=== PATIENT | male | born 1965 | race Caucasian/White ===

== ENCOUNTER 2022-05-26 22:13 | Emergency (ER) | payer BC, SELFPAY ==
[2022-05-26 22:20] VITALS: BP 186/100; PULSE 67; RESP 18; TEMP 36.8; O2SAT 99; BMI 26.1
--- NOTE | 2022-05-26 22:25 | DI.RAD.S_ITS ---
PROCEDURE: XR CHEST 1V INDICATIONS: chest pain TECHNIQUE: One view of the chest was acquired. COMPARISON: None. FINDINGS: Surgical changes and devices: None. Lungs and pleura: Lungs are clear. No pleural effusions or pneumothorax. Mediastinum: Mediastinal contours appear normal. Heart size is normal. Bones and chest wall: No suspicious bony lesions. Overlying soft tissues appear unremarkable. IMPRESSION: 1. No acute cardiopulmonary disease. Dictated by: Steve Cristobal M.D. on 05/26/2022 at 23:42 Approved by: Steve Cristobal M.D. on 05/26/2022 at 23:42
--- NOTE | 2022-05-26 22:27 | ED.CHESTPAIN ---
HPI - Chest Pain General Chief Complaint: Chest Pain Stated Complaint: lt arm pain, nausea, hx heart attack Time Seen by Provider: 05/26/22 22:25 History of Present Illness HPI narrative: 57-year-old male nonsmoker with history of coronary artery disease and what sounds like a VFib arrest with subsequent heart catheterization resulting in the placement of 3 stents in 2017 or 2018 in [place]. The patient states that he had a clean cath about 1-2 years ago and largely been in his normal state of health until earlier today when he developed 7/10 retrosternal chest pressure with radiation to his left arm and neck. He denies any obvious provocation, palliation of the symptoms and states that he has associated nausea and shortness of breath. He denies any dizziness or lightheadedness nor unexplained diaphoresis. He states that he frequently exercises heavily and has had no exercise intolerance or unexplained fatigue. He denies any recent injury. He states he recently traveled from [place] and flew in today. Denies any history of blood clot and has no lower extremity numbness, tingling or weakness Related Data Previous Rx's Medication Instructions Recorded nitroglycerin 0.4 mg sublingual 0.4 mg sublingual Q5-15M PRN chest 05/27/22 tablet pain #30 tabs Allergies Allergy/AdvReac Type Severity Reaction Status Date / Time No Known Drug Allergies Allergy Verified 05/26/22 23:07 Review of Systems Review of Systems Narrative: GENERAL: See HPI HEENT: Denies sinus pain, ear pain, sore throat, difficulty swallowing, dizziness. RESPIRATORY: Denies dyspnea, cough, wheezing, hemoptysis, sputum. CARDIOVASCULAR: See HPI GASTROINTESTINAL: Denies nausea, vomiting, abdominal pain, diarrhea, constipation, melena. : Denies dysuria, frequency, incontinence, hematuria, urinary retention. MUSCULOSKELETAL: denies weakness, joint pain, or bony pain SKIN: Denies rash, skin lesions, or other NEUROLOGIC: Denies weakness, headache, numbness, change in speech, confusion, seizures, incoordination. PSYCHIATRIC: No concerning psychosocial issues. 12 point review of systems is negative except for those stated above Patient History Social History Smoking Status: Never smoker Exam Narrative Exam Narrative: GENERAL: [57] year old patient appears stated age. Well-developed patient, in mild distress. HEAD: Atraumatic. Normocephalic. EYES: Pupils equal round and reactive. Extraocular motions intact. No scleral icterus. No injection or drainage. ENT: Nose without bleeding, purulent drainage. Throat without erythema, tonsillar hypertrophy or exudate. Airway patent. NECK: Trachea midline. Non tender CARDIOVASCULAR: Regular rate and rhythm without murmurs, gallops, or rubs. RESPIRATORY: Clear to auscultation. Breath sounds equal bilaterally. No wheezes, rales, or rhonchi. GASTROINTESTINAL: Abdomen soft, non-tender, nondistended. EXTREMITIES: No edema or joint tenderness. BACK: Nontender without deformity or crepitance. No flank tenderness. NEURO: AOx3. SKIN: No rash or erythema of visible areas Initial Vital Signs Initial Vital Signs: Vital Signs Temperature 98.2 F 05/26/22 22:20 Pulse Rate 67 05/26/22 22:20 Respiratory Rate 18 05/26/22 22:20 Blood Pressure 186/100 H 05/26/22 22:20 Pulse Oximetry 99 05/26/22 22:20 Oxygen Delivery Method 05/26/22 22:20 Scores HEART Score Heart Score history: Highly Suspicious Heart Score EKG: Normal Heart Score Age: 45-64 years old Heart Score risk factors: > 3 risk factors or hx of atherosclerotic disease Heart Score troponin: < or = to normal limit Heart Score Total: 5 Course Orders Ordered: ED Orders 05/26/22 22:25 XR chest 1V Stat 05/26/22 22:28 EKG-12 Lead Stat 05/26/22 22:30 Complete Blood Count AUTO DIFF Stat Comprehensive Metabolic Panel Stat D Dimer Stat Lipase Stat NT-proBNP (BNP-Adult 18+) Stat Prothrombin Time INR Stat Troponin & CK Cardiac Panel Stat 05/26/22 22:52 EKG-12 Lead Routine 05/26/22 23:13 EKG-12 Lead Routine 05/27/22 00:27 Troponin I Stat 05/27/22 00:55 Lipid Panel Urgent 05/27/22 00:56 Exercise treadmill NON NUC Urgent 05/27/22 00:57 EC echo doppler complete Urgent 05/27/22 00:58 Education, smoking cessation ONGOING 05/27/22 01:00 Magnesium Urgent Discontinued Medications Acetaminophen (Acetaminophen 325 Mg Tablet) 650 mg PO Q6HR PRN PRN Reason: Fever/Mild Pain (1-3) Aspirin (Aspirin 81 Mg Chew Tab) 324 mg PO NOW ONE Stop: 05/26/22 22:26 Last Admin: 05/26/22 22:51 Dose: 324 mg Documented By: AT Aspirin (Aspirin Ec 325 Mg Tablet) 325 mg PO DAILY [facility] Enoxaparin Sodium (Enoxaparin 40 Mg/0.4 Ml Syringe) 40 mg SUBCUT DAILY [facility] Sodium Chloride (Normal Saline 0.9%) 1,000 mls @ 150 mls/hr IV CONT DENNY Last Admin: 05/26/22 23:08 Dose: 150 mls/hr Documented By: AT Morphine Sulfate (Morphine 2 Mg/Ml Inj) 2 mg IV Q5MIN PRN PRN Reason: Chest Pain Nitroglycerin (Nitroglycerin 0.4 Mg Sl Tab) 0.4 mg SL [id number] PRN PRN Reason: Chest Pain Last Admin: 05/26/22 22:52 Dose: 0.4 mg Documented By: AT Nitroglycerin (Nitroglycerin 0.4 Mg Sl Tab) 0.4 mg SL [id number] PRN PRN Reason: Chest Pain Ondansetron HCl (Ondansetron 4 Mg/2 Ml Inj) 4 mg IV Q4HR PRN PRN Reason: Nausea And Vomiting Potassium Chloride (Potassium Chloride 20 Meq Tab) 20 meq PO NOW ONE Stop: 05/27/22 01:03 Vital Signs Vital signs: Vital Signs - 8 hr 05/26/22 22:50 05/26/22 22:50 05/26/22 22:57 Pulse Rate 68 81 Respiratory Rate Blood Pressure 155/89 H Pulse Oximetry 97 97 Oxygen Delivery Method 05/26/22 22:57 05/26/22 23:00 05/26/22 23:00 Pulse Rate 77 Respiratory Rate 15 Blood Pressure 137/74 120/71 Pulse Oximetry 96 Oxygen Delivery Method Room Air 05/26/22 23:30 05/26/22 23:30 05/27/22 00:00 Pulse Rate 60 Respiratory Rate 12 Blood Pressure 122/69 128/78 Pulse Oximetry 95 Oxygen Delivery Method 05/27/22 00:00 05/27/22 00:30 05/27/22 00:30 Pulse Rate 63 66 Respiratory Rate 16 33 H Blood Pressure 126/81 Pulse Oximetry 96 95 Oxygen Delivery Method 05/27/22 01:00 05/27/22 01:00 05/27/22 01:30 Pulse Rate 74 Respiratory Rate 23 Blood Pressure 135/89 160/91 H Pulse Oximetry 96 Oxygen Delivery Method 05/27/22 01:30 05/27/22 01:38 05/27/22 01:38 Pulse Rate 67 68 Respiratory Rate 24 16 Blood Pressure 147/85 H Pulse Oximetry 96 97 Oxygen Delivery Method MDM - Chest Pain Lab Data Result diagrams: 05/26/22 22:30 05/26/22 22:30 Labs: Lab Results 05/26/22 05/26/22 05/26/22 Range/Units 22:30 22:30 22:30 WBC 7.8 (4.5-11.0) X10^3/uL RBC 4.46 L (4.5-5.9) X10^6/uL Hgb 14.4 (13.5-17.5) g/dL Hct 40.7 L (41-53) % MCV 91.4 (80-100) fL MCH 32.2 (26-34) PG MCHC 35.3 (30-36) % RDW 13.0 (11.6-14.8) % Plt Count 213 (150-400) X10^3/uL Neut % (Auto) 53.8 (50-75) % Lymph % (Auto) 32.1 (25-40) % [place] % (Auto) 9.9 (3-14) % Eos % (Auto) 2.9 (2-4) % Baso % (Auto) 1.3 (0-2) % Neut # (Auto) 4200 (2691-1533) /uL Lymph # (Auto) 2500 (8928-1609) /uL [place] # (Auto) 800 (0-900) /uL Eos # (Auto) 200 (0-450) /uL Baso # (Auto) 100 (0-100) /uL PT 11.0 (10.1-12.7) SECONDS INR 1.0 (0.9-1.3) D-Dimer 282 (<500) ng/ml Sodium 139 (137-145) mmol/L Potassium 3.2 L (3.4-5.1) mmol/L Chloride 103 (98-107) mmol/L Carbon Dioxide 28 (22-32) mmol/L BUN 25 H (9-20) mg/dL Creatinine 1.11 (0.66-1.25) mg/dL Estimated GFR > 60 (>60) mL/min BUN/Creatinine Ratio 22.5 H (6-22) Glucose 114 H (70-100) mg/dL Calcium 8.7 (8.4-10.2) mg/dL Total Bilirubin 0.7 (0.2-1.3) mg/dL AST 25 (17-59) IU/L ALT 26 (<50) IU/L Alkaline Phosphatase 51 (38-126) U/L Total Creatine Kinase 53 L (55-170) U/L CK-MB (CK-2) TNP CK-MB (CK-2) Rel Index TNP Troponin I < 0.012 (0.01-0.034) ng/mL NT-Pro-B Natriuret Pep (<125) pg/mL Total Protein 6.7 (6.3-8.2) g/dL Albumin 4.0 (3.5-5.0) g/dL Globulin 2.7 (1.7-4.1) g/dL Albumin/Globulin Ratio 1.5 (1.0-2.8) Lipase 194 (23-300) U/L 05/26/22 05/27/22 Range/Units 22:30 00:27 WBC (4.5-11.0) X10^3/uL RBC (4.5-5.9) X10^6/uL Hgb (13.5-17.5) g/dL Hct (41-53) % MCV (80-100) fL MCH (26-34) PG MCHC (30-36) % RDW (11.6-14.8) % Plt Count (150-400) X10^3/uL Neut % (Auto) (50-75) % Lymph % (Auto) (25-40) % [place] % (Auto) (3-14) % Eos % (Auto) (2-4) % Baso % (Auto) (0-2) % Neut # (Auto) (5356-9643) /uL Lymph # (Auto) (5492-5410) /uL [place] # (Auto) (0-900) /uL Eos # (Auto) (0-450) /uL Baso # (Auto) (0-100) /uL PT (10.1-12.7) SECONDS INR (0.9-1.3) D-Dimer (<500) ng/ml Sodium (137-145) mmol/L Potassium (3.4-5.1) mmol/L Chloride (98-107) mmol/L Carbon Dioxide (22-32) mmol/L BUN (9-20) mg/dL Creatinine (0.66-1.25) mg/dL Estimated GFR (>60) mL/min BUN/Creatinine Ratio (6-22) Glucose (70-100) mg/dL Calcium (8.4-10.2) mg/dL Total Bilirubin (0.2-1.3) mg/dL AST (17-59) IU/L ALT (<50) IU/L Alkaline Phosphatase (38-126) U/L Total Creatine Kinase (55-170) U/L CK-MB (CK-2) CK-MB (CK-2) Rel Index Troponin I < 0.012 (0.01-0.034) ng/mL NT-Pro-B Natriuret Pep 27 (<125) pg/mL Total Protein (6.3-8.2) g/dL Albumin (3.5-5.0) g/dL Globulin (1.7-4.1) g/dL Albumin/Globulin Ratio (1.0-2.8) Lipase (23-300) U/L MDM Narrative Medical decision making narrative: 57-year-old male with concerning story and significant cardiac history has multiple EKGs without occlusive findings such as ST segment elevation, depression, T-wave abnormalities or other. He is had reassuring lab work and 2 troponins by 3 hours that are undetectable. His pain completely resolved after 1 nitro and he remained pain-free for multiple hours. That being said I told him from the onset that I strongly recommended hospitalization and had in fact already had him admitted into the hospital in orders written by the hospitalist when he and his had a discussion and decided to leave against medical advice. They were quite polite and asked many well-informed questions. We had a lengthy, engaging bedside discussion about risks and benefits including my desire to continue to monitor lab work, telemetry, obtain echocardiogram and stress test. They both clearly understood risks and benefits and in fact resided them to me before I was able to even discussed them. They understand that they may return immediately for any change of heart without any fear for repercussion. They expect to contact her belt measurer back home and will attempt to fly home. I sent a prescription for nitro to the patient's preferred pharmacy, encouraged him to begin taking full-dose aspirin until he speaks with his belt measurer and return immediately for any recurrent symptoms. Discharge Plan Departure Patient Disposition: Home Clinical Impression: Chest pain Instructions: DI for Angina Activity Restrictions/Additional Instructions: *You have been diagnosed with [chest pain with a very concerning story, in my opinion is high risk and as we discussed I very much would prefer to keep you in the hospital that respect her decision and your understanding of the risks and benefits. Please note that if at any point you change your mind we would gladly welcome you back] *What to do: *Please increase your aspirin to 324 mg daily, otherwise continue her medications as previously prescribed [ x] New medication prescriptions sent to your pharmacy: [[facility] ] [ ] New medication written as a paper prescription [ ] No new medications given *Please follow up with your primary belt measurer as soon as possible, call for an appointment. Let them know you were seen in the Emergency Department and that we ask that you be seen in follow up. *Return to Emergency Department if you should have any new, worsening or concerning symptoms, such as recurrence of chest pain or pressure, unexplained shortness of breath, sweating, vomiting or other bothersome symptoms Prescriptions: New nitroglycerin 0.4 mg tablet, sublingual 0.4 mg sublingual Q5-15M PRN (Reason: chest pain) Qty: 30 0RF Rx Instructions: do not exceed 3 doses per episode Visit Report Forms: Patient Portal/API
[2022-05-26 22:50] VITALS: BP 155/89; PULSE 68; O2SAT 97
[2022-05-26 22:50] LABS: Add Manual Diff / Slide Review NO; Basophils Absolute Auto 100 /uL (0-100); Basophils Percent Auto 1.3 % (0-2); Eosinophils Absolute Auto 200 /uL (0-450); Eosinophils Percent Auto 2.9 % (2-4); Hematocrit 40.7 % (41-53); Hemoglobin 14.4 g/dL (13.5-17.5); Lymphocytes Absolute Auto 2500 /uL (1100-4500); Lymphocytes Percent Auto 32.1 % (25-40); Mean Corpuscular HGB Conc 35.3 % (30-36); Mean Corpuscular Hemoglobin 32.2 PG (26-34); Mean Corpuscular Volume 91.4 fL (80-100); Monocytes Absolute Auto 800 /uL (0-900); Monocytes Percent Auto 9.9 % (3-14); Neutrophils Absolute Auto 4200 /uL (1500-7000); Neutrophils Percent Auto 53.8 % (50-75); Platelet Count 213 X10^3/uL (150-400); Red Blood Cell Count 4.46 X10^6/uL (4.5-5.9); White Blood Cell Count 7.8 X10^3/uL (4.5-11.0)
[2022-05-26] MEDS: ASPIRIN 81 MG CHEW TAB 324 MG PO (22:51)
[2022-05-26] MEDS: NITROGLYCERIN 0.4 MG SL TAB SL (22:52)
[2022-05-26 22:57] VITALS: BP 137/74; PULSE 81; O2SAT 97
[2022-05-26 22:57] LABS: Alanine Aminotransferase 26 IU/L (<50); Albumin Globulin Ratio 1.5 (1.0-2.8); Alkaline Phosphatase 51 U/L (38-126); Aspartate Aminotransferase 25 IU/L (17-59); BUN Creatinine Ratio 22.5 (6-22); Bilirubin Total 0.7 mg/dL (0.2-1.3); Blood Urea Nitrogen 25 mg/dL (9-20); Calcium 8.7 mg/dL (8.4-10.2); Carbon Dioxide 28 mmol/L (22-32); Chloride 103 mmol/L (98-107); Creatine Kinase 53 U/L (55-170); D Dimer 282 ng/ml (<500); Estimated Glomerular Filt Rate > 60 mL/min (>60); Globulin 2.7 g/dL (1.7-4.1); Glucose 114 mg/dL (70-100); HEMOLYSIS < 15 (0-50); Lipase 194 U/L (23-300); Potassium 3.2 mmol/L (3.4-5.1); Sodium 139 mmol/L (137-145); Total Protein 6.7 g/dL (6.3-8.2)
[2022-05-26 23:00] VITALS: BP 120/71; PULSE 77; RESP 15; O2SAT 96
[2022-05-26 23:06] LABS: NT-proBNP (BNP-Adult 18+) 27 pg/mL (<125)
[2022-05-26] MEDS: SODIUM CHLORIDE 0.9% 1,000 ML 150 ML IV (23:08)
[2022-05-26 23:09] LABS: Troponin I < 0.012 ng/mL (0.01-0.034)
[2022-05-26 23:30] VITALS: BP 122/69; PULSE 60; RESP 12; O2SAT 95
[2022-05-27] VITALS: BP 128/78; PULSE 63; RESP 16; O2SAT 96
[2022-05-27 00:30] VITALS: BP 126/81; PULSE 66; RESP 33; O2SAT 95
[2022-05-27 01:00] VITALS: BP 135/89; PULSE 74; RESP 23; O2SAT 96
[2022-05-27 01:00] LABS: Troponin I < 0.012 ng/mL (0.01-0.034)
--- NOTE | 2022-05-27 01:22 | PM.HP.1 ---
History of Present Illness History of Present Illness Date Patient Seen: 05/27/22 Time Patient Seen: 01:23 Chief complaint: lt arm pain, nausea, hx heart attack Patient History Family & Social History Safety & Behavioral: Feels Safe in Current Yes Environment Tobacco & Substance use: Smoking Status Never smoker alcohol intake frequency a few times a month Substance Use Type does not use Meds Home Medications and Allergies Allergies Allergy/AdvReac Type Severity Reaction Status Date / Time No Known Drug Allergies Allergy Verified 05/26/22 23:07 Exam Vital Signs (past 8 hours): - 05/26/22 22:20 05/26/22 22:50 05/26/22 22:50 Temperature 98.2 F Pulse Rate 67 68 Respiratory Rate 18 Blood Pressure 186/100 H 155/89 H Pulse Oximetry 99 97 Oxygen Delivery Method Room Air 05/26/22 22:57 05/26/22 22:57 05/26/22 23:00 Temperature Pulse Rate 81 Respiratory Rate Blood Pressure 137/74 120/71 Pulse Oximetry 97 Oxygen Delivery Method 05/26/22 23:00 05/26/22 23:30 05/26/22 23:30 Temperature Pulse Rate 77 60 Respiratory Rate 15 12 Blood Pressure 122/69 Pulse Oximetry 96 95 Oxygen Delivery Method Room Air 05/27/22 00:00 05/27/22 00:00 05/27/22 00:30 Temperature Pulse Rate 63 Respiratory Rate 16 Blood Pressure 128/78 126/81 Pulse Oximetry 96 Oxygen Delivery Method 05/27/22 00:30 05/27/22 01:00 05/27/22 01:00 Temperature Pulse Rate 66 74 Respiratory Rate 33 H 23 Blood Pressure 135/89 Pulse Oximetry 95 96 Oxygen Delivery Method Oxygen Delivery Method Room Air Objective Labs Result Diagrams: 05/26/22 22:30 05/26/22 22:30 Labs: Laboratory Results - last 24 hr 05/26/22 05/26/22 05/26/22 22:30 22:30 22:30 WBC 7.8 RBC 4.46 L Hgb 14.4 Hct 40.7 L MCV 91.4 MCH 32.2 MCHC 35.3 RDW 13.0 Plt Count 213 Neut % (Auto) 53.8 Lymph % (Auto) 32.1 [place] % (Auto) 9.9 Eos % (Auto) 2.9 Baso % (Auto) 1.3 Neut # (Auto) 4200 Lymph # (Auto) 2500 [place] # (Auto) 800 Eos # (Auto) 200 Baso # (Auto) 100 PT 11.0 INR 1.0 D-Dimer 282 Sodium 139 Potassium 3.2 L Chloride 103 Carbon Dioxide 28 BUN 25 H Creatinine 1.11 Estimated GFR > 60 BUN/Creatinine Ratio 22.5 H Glucose 114 H Calcium 8.7 Total Bilirubin 0.7 AST 25 ALT 26 Alkaline Phosphatase 51 Total Creatine Kinase 53 L CK-MB (CK-2) TNP CK-MB (CK-2) Rel Index TNP Troponin I < 0.012 NT-Pro-B Natriuret Pep Total Protein 6.7 Albumin 4.0 Globulin 2.7 Albumin/Globulin Ratio 1.5 Lipase 194 05/26/22 05/27/22 22:30 00:27 WBC RBC Hgb Hct MCV MCH MCHC RDW Plt Count Neut % (Auto) Lymph % (Auto) [place] % (Auto) Eos % (Auto) Baso % (Auto) Neut # (Auto) Lymph # (Auto) [place] # (Auto) Eos # (Auto) Baso # (Auto) PT INR D-Dimer Sodium Potassium Chloride Carbon Dioxide BUN Creatinine Estimated GFR BUN/Creatinine Ratio Glucose Calcium Total Bilirubin AST ALT Alkaline Phosphatase Total Creatine Kinase CK-MB (CK-2) CK-MB (CK-2) Rel Index Troponin I < 0.012 NT-Pro-B Natriuret Pep 27 Total Protein Albumin Globulin Albumin/Globulin Ratio Lipase Assessment & Plan Time Spent With Patient Critical Care time: I spent a total of [] minutes of critical care time on this patient's care today; this time is exclusive of procedural time.
[2022-05-27 01:30] VITALS: BP 160/91; PULSE 67; RESP 24; O2SAT 96
[2022-05-27 01:38] VITALS: BP 147/85; PULSE 68; RESP 16; O2SAT 97
== END 2022-05-27 01:49 | disposition home or self-care (01) ==
PROVIDERS: Emergency Provider Emergency Medicine
DX: R07.9 Chest pain, unspecified (principal)
CPT/HCPCS: 36415; 71045; 80053; 82550; 82553; 83690; 83880; 84484; 85025; 85379; 85610; 93005; 99284